=== PATIENT | male | born 1985 | race Caucasian/White ===

== ENCOUNTER 2023-01-30 07:50 | Outpatient (CLI) | payer OTHER, SELFPAY ==
--- OUTSIDE RECORDS SUMMARY | 2023-01-30 07:52 | XMS_ITS | Continuity of Care Document ---
Author Name Unknown Organization [facility] Address [address] [place] [address] Phone Care Team Providers Care Compound Filler Name Role Phone Isreal Moulton Unavailable Unavailable Allergies, Adverse Reactions, Alerts Substance Reaction Status Criticality No Known Allergies Active No Inform ation Medications Medication Instructions Dosage Effective Dates (start - stop) Status Comments TRAMADOL HCL (unknown strength) Not Available - Active ZANTAC (unknown strength) Not Available - No Longer Active Procedures Procedure Date Office/Outpatient Visit,[place] [facility] [place]patient Visit,[facility], [facility] [place] Advance Directives Directive Yes / No Effective Date File Name No Information Encounters Encounter Description Practice Location Reason(s) For Visit Diagnoses Date Provider Providers Copied on Encounter Office/Outpat ient Visit,New, [facility], [address], [place], [id number], [place] tel:[phone] [facility] Other intervertebral disc degeneration, lumbar region 3 Panvicanita Isreal. [facility], [address] [place] [address], [address], [place], [id number] , [place]. tel:[phone] Referring Provider: Ganga Hayden, [facility] [address], [place], [address] . tel:[phone] Office/Outpat ient Visit,[facility], [facility], [address], [place], [id number], [place] tel:[phone] [facility] - Jackie OverweightLow back pain 6 Johnny Schuler. [facility], [address], [place], [id number] , [place]. tel:[phone] Referring Provider: Ganga Hayden, [facility] [address], [place], [address] . tel:[phone] Family History Family Member Type Diagnosis Age At Onset No Information Payers Payer name Insurance type Covered constitution party ID Mariana jolly(s) [facility] [id number] Social History Type Description Quantity Date Captured Comments Alcohol Use Details Unknown Caffeine Use Details Unknown Tobacco Use Status No Information Smoking Status No Information Sex Male Vital Signs Date / Time: Height Weight BMI Pulse Rate Blood Pressure Temperature Respiratory Rate Body Surface Area Head Circumference Head Circ. Percentile Wt./Nader. Percentile BMI percentile Pulse Ox Inhaled Ox 7:59 AM 74.50 in 108.862 kg (240.00 lbs) 30.4 0 kg/m eter (2) Chief Complaint And Reason For Visit No Information Reason For Referral Reason For Referral No Information History Of Present Illness Encounter Date Complaint History Of Prese nt Illness No Information Functional Status Date Functional Assessmen t No Information Instructions Date Instruction Additional Infor mation Weight Management Education Rela collins to Overweight Weight management: I nstructed to return to General Practitioner timeframe: 1 Month. Related to Overweight Assessments Type Assessment Date assessment Other intervertebral disc degene ration, lumbar region Patient Care Teams Name Effective Dates (start - stop) Status Members No Information
[2023-01-30] MEDS: REGADENOSON 0.4 MG/5 ML SYRINGE IVP (09:35)
[2023-01-30] MEDS: SODIUM CHLORIDE 0.9 % (FLUSH) 10 ML SYRINGE IVF (09:35)
--- NOTE | 2023-01-30 09:47 | W.PM.STED ---
Stress Test Note Date Date Seen: 01/30/23 Date of test: 01/30/23 Providers Primary care provider: Lam Cormier Stress test physician: Cielo aPdilla Stress Test Note Stress test ordered: Lexiscakash Indication for test: LBBB Stress test medicine: Lexiscan Results discussion: Resting EKG: Left bundle branch block, Resting blood pressure: Stress test: Patient had a nonwalking Lexiscan done. With the infusion of the regadenoson he had some initial chest heaviness and felt a little dizzy or lightheaded. He maintained left bundle branch block throughout this test in a maximum blood pressure 160/32. His heart rate went to maximum of 113. Need to await the nuclear medicine images for full formal diagnostic. Patient was in stable condition and had resolved symptoms shortly into the test. Impression: Left bundle branch block, indeterminate EKG. Need to await the nuclear medicine images for the formal diagnostic. Follow up suggested: Await nuclear medicine images. His primary provider should get this report when done. He is discharged from here in stable condition.
[2023-01-30 09:50] VITALS: BP 117/76; PULSE 85
== END 2023-01-30 07:51 | disposition home or self-care (01) ==
LOC: STRESS 07:51
PROVIDERS: PCP Family Medicine; Visit Provider Family Medicine
DX: I44.7 Left bundle-branch block, unspecified (principal)
CPT/HCPCS: 78452; 93016; 93017; A9500; J2785

== ENCOUNTER 2023-07-30 07:38 | Outpatient (CLI) | payer OTHER, SELFPAY | END 2023-07-30 07:39 | disposition home or self-care (01) | LOC: NFLDREF 12:09 | PROVIDERS: PCP Family Medicine; Referring Provider Family Medicine; Visit Provider Family Medicine | DX: E78.1 Pure hyperglyceridemia (principal) | CPT/HCPCS: 80061 ==